=== PATIENT | female | born 1995 | race African-American/Black ===

== ENCOUNTER 2017-10-05 08:22 | Emergency (ER) | payer OTHER ==
[2017-10-05 08:33] VITALS: BP 145/89
--- NOTE | 2017-10-05 08:43 | ED Physician Documentation ---
Lower Extremity Problem - HISTORIAN Historian: patient - HPI Stated Complaint: Right Knee Pain Chief Complaint: Lower Extremity Problem Additional Information: R knee dislocated 09/27 and her mother reduced it. Last night at work, knee began to hurt. She has been wearign knee brece pain began and she worked all night. Both knees have been dislocating since she was in grade school. No other treatment or associated signs. Doesn't know where to go for further eval. Walked into ER. - ROS CONST: no problems - PAST HX Past History: none Allergies/Adverse Reactions: Allergies Allergy/AdvReac Type Severity Reaction Status Date / Time shrimp Allergy Verified 10/05/17 08:32 Home Medications: Ambulatory Orders Medication Instructions Recorded Norgestimate-Ethinyl Estradiol 1 tab PO D 12/24/15 [Sprintec 28 Day Tablet] - SOCIAL HX Smoking History: non-smoker Alcohol Use: none Drug Use: none - FAMILY HX Family History: none (M has "knee problems") - VITAL SIGNS Vital Signs: Vital Signs Temp Pulse Resp BP Pulse Ox 98.1 F 90 18 145/89 100 10/05/17 08:25 10/05/17 08:25 10/05/17 08:25 10/05/17 08:25 10/05/17 08:25 - REVIEWED ASSESSMENTS Nursing Assessment Reviewed: Yes Vitals Reviewed: Yes Lower Extremity Problem - EXAM General Appearance: mild distress Hips: bilateral hip: normal inspection, no evidence of injury Legs: bilateral: normal inspection, no evidence of injury Knees: bilateral: normal inspection, normal range of motion, no evidence of injury, other (no drawer signs. no significant varus/valgus deviation) Ankle: bilateral: normal inspection, no evidence of injury Foot: bilateral foot: no evidence of injury Neuro/Tendon: normal sensation, normal motor functions, normal tendon functions , no evidence tendon injury EENT: eye inspection normal, ENT inspection normal RESPIRATORY: no resp distress VASCULAR: no vascular compromise NEURO/PSYCH: CN's nml as tested, motor nml, sensation nml, cognition normal Discharge Clincal Impression: Knee pain, right Qualifiers: Chronicity: chronic Qualified Code(s): M25.561 - Pain in right knee; G89.29 - Other chronic pain; G89.29 - Other chronic pain Referrals: Primary Doctor,No [Primary Care Provider] - 2 Days Condition: Good Disposition: 01 HOME, SELF-CARE Decision to Admit: NO Decision Time: 08:43
== END 2017-10-05 08:58 | disposition home or self-care (01) ==
LOC: ED 08:22
DX: M25.561 Pain in right knee (principal); G89.29 Other chronic pain
CPT/HCPCS: 99282